=== PATIENT | male | born 1960 | race Caucasian/White ===

== ENCOUNTER 2024-02-15 12:09 | Emergency (ER) | payer BC ==
[~2024-02-15] VITALS: Ht 175.3 cm; Wt 86.2 kg
[2024-02-15 12:12] VITALS: BP_SYST 169; PULSE 82; RESP 18; TEMP 98; O2SAT 98
[2024-02-15 12:38] LABS: BASOPHILS % (AUTO) 0.3 % (0.0-2.0); EOSINOPHILS % (AUTO) 0.5 % (0.0-4.0); HEMATOCRIT 39.3 % (36-54); HEMOGLOBIN 13.5 g/dL (14.0-18.0); LYMPHOCYTES # (AUTO) 1.1 K/uL (1.0-5.5); MEAN CORPUSCULAR HEMOGLOBIN 31 pg (27-31); MEAN CORPUSCULAR HGB CONC 34 % (32-36); MEAN CORPUSCULAR VOLUME 92 fL (79.0-98.0); MONOCYTES # (AUTO) 0.4 K/uL (0.0-1.0); NEUTROPHILS # (AUTO) 4.8 K/uL (1.8-7.7); NEUTROPHILS % (AUTO) 75.2 % (40.0-70.0); PLATELET COUNT (AUTO) 240 K/uL (130-430); RED CELL DISTRIBUTION WIDTH 12.9 % (9.0-15.0); WHITE BLOOD COUNT (AUTO) 6.4 K/uL (4.8-10.8)
[2024-02-15 12:59] LABS: INR 1.1 (0.80-1.20); PROTHROMBIN TIME 11.5 SECS (9.5-12.5)
[2024-02-15 13:06] LABS: ALANINE AMINOTRANSFERASE 39 U/L (12-78); ALBUMIN 3.8 g/dL (3.4-4.8); ANION GAP 10 (5-15); ASPARTATE AMINOTRANSFERASE 22 U/L (10-37); CALCIUM 9.2 mg/dL (8.4-11.0); CARBON DIOXIDE 24 mmol/L (23-29); CHLORIDE 101 mmol/L (98-107); CREATININE 1.43 mg/dL (0.55-1.30); GFR AFRICAN AMERICAN 64 mL/min (>90); GLUCOSE 116 mg/dL (74-106); POTASSIUM 3.8 mmol/L (3.5-5.1); SODIUM SERUM 135 mmol/L (136-145); TOTAL BILIRUBIN 0.5 mg/dL (0.0-1.0); TOTAL PROTEIN, SERUM 7.1 g/dL (6.4-8.3); UREA NITROGEN, BLOOD 31 mg/dL (8-21)
[2024-02-15 13:07] LABS: GFR NON AFRICAN-AMERICAN 53 mL/min (>90)
[2024-02-15 13:10] LABS: BILIRUBIN,DIRECT 0.1 mg/dL (0.0-0.3); CREATINE KINASE, TOTAL 81 U/L (39-308)
[2024-02-15] MEDS ORDERED: ASPI-1155 PO (14:45)
[2024-02-15] MEDS ORDERED: CLOP75TA32 PO (14:45)
[2024-02-15] MEDS: ASPIRIN 81 MG TAB.CHEW PO ONE (14:52)
[2024-02-15] MEDS: CLOPIDOGREL BISULFATE 75 MG TABLET PO ONE (14:52)
[2024-02-15 15:24] VITALS: BP_SYST 151; PULSE 76; RESP 21; TEMP 98; O2SAT 95
== END 2024-02-15 15:21 | disposition home or self-care (01) ==
LOC: SED 12:09
DX: G45.8 Other transient cerebral ischemic attacks and related syndromes (principal); R47.81 Slurred speech; R42 Dizziness and giddiness; H53.8 Other visual disturbances; I10 Essential (primary) hypertension
CPT/HCPCS: 99291; 70496; 71045; 80076; 80048; 82550; 85025; 85610; 85730; 84484; 36415; 93005; 70498; 82948; 70450; Q9967